=== PATIENT | female | born 1995 | race Two or more races ===

== ENCOUNTER 2018-10-31 11:46 | Emergency (ER) | payer SELFPAY ==
[~2018-10-31] VITALS: Ht 162.6 cm; Wt 55.0 kg
[2018-10-31 11:52] VITALS: BP 130/79
== END 2018-10-31 12:31 | disposition left against medical advice (07) ==
LOC: ER 11:46
DX: O46.91 Antepartum hemorrhage, unspecified, first trimester (principal); Z53.21 Procedure and treatment not carried out due to patient leaving prior to being seen by health care provider; Z3A.08 8 weeks gestation of pregnancy
CPT/HCPCS: 81025